=== PATIENT | male | born 1985 | race Caucasian/White ===

== ENCOUNTER → 2019-08-25 | Day surgery (SDC) | payer BC ==
[~2019-08-25] MED LIST: ACETAMINOPHEN 1000 MG/100 ML IV ONE; ADDERALL 30 MG30 MG PO; ADVIL200 MG PO; CEFAZOLIN SOD 1 GM/NS 50ML 100 ML IV ONE; DESFLURANE 240 ML BTL INH ONE; DEXAMETHASONE SOD PHOS INJ 4 MG/ML VIAL ONE; EPINEPHRINE 1 MG/ML 30ML VIAL ONE; FENTANYL CITRATE/PF 100MCG/2 ML INJ ONE; GLYCOPYRROLATE INJ 0.2 MG/ML VIAL ONE; KETOROLAC TROMETHAMINE 30 MG/ML VIAL ONE; LIDOCAINE HCL 2% LOCAL INJ 5 ML SDV VIAL INJ ONE; MIDAZOLAM HCL 2 MG/2 ML VIAL ONE; NEOSTIGMINE 1 MG/ML 10ML VIAL ONE; ONDANSETRON HCL INJ 2MG/ML 2ML 2 MG/ML VIAL ONE; PROPOFOL IV EMULSION 10 MG/ML 20 ML VIAL ONE; ROCURONIUM BROMIDE 10 MG/ML 5ML VIAL ONE; ROPIVACAINE 0.5% 5 MG/ML 30 ML SDV ONE; SUGAMMADEX SODIUM 200 MG/2 ML VIAL IV ONE; TYLENOL PO
--- OUTSIDE RECORDS SUMMARY | 2019-08-25 09:11 | XMS REPORT | Summary of Care ---
Author Author Lexie Carrillo M.A. Unknown Address [facility] Phone Unavailable Care Team Providers Care Manager Supply Chain Planning Name Role Phone EAMON PIERRE M.D. 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 Biceps tendinitis of right upper extremity (726.12, M75.21) Status: Active Medications Name Dates Details Medications not documented Allergies and Adverse Reactions Name Dates Details No Known Drug Allergies (Allergy) Status: Active Past Medical History Name Dates Details History of High blood pressure (401.9, I10) Status: Resolved Procedures Procedure Dates Details History of Shoulder Surgery Completed History of Oral Surgery Tooth Extraction Shannon Tooth Completed Immunization Name Dates Details Immunizations not documented Social History Name Dates Details - Status: Name Dates Details Never smoker Vital Signs Date Test Result Details No Known Vitals to report Results Date Description Value Details [id number] [U] XRAY SHOULDER MIN 2 VWS RIGHT [id number] XR SHOULDER MIN 2 VWS RIGHT Images acquired, not reported on this accession number. Plan of Care Name Dates Details Planned Observations Planned Goals not documented Planned Encounters Appointment; EAMON PIERRE M.D. On: 21-Apr-2019 7:00 Appointment; EAMON PIERRE M.D. On: 26-Apr-2019 10:15 Instructions Name Dates Details Instructions not documented Encounters Appointment; EAMON PIERRE M.D. Encounter Diagnosis: Problem not documented On: 05-Apr-2019 13:00 Appointment; EAMON PIERRE M.D. Encounter Diagnosis: Problem not documented On: 21-Apr-2019 7:00
[2019-08-25 16:35] VITALS: BP 117/90
--- NOTE | 2019-09-03 17:57 | Operative Report ---
DATE OF PROCEDURE: 08/25/2019 SURGEON: Mahendra Ordonez MD PREOPERATIVE DIAGNOSIS: Right shoulder labral tear. 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 OPERATION PROCEDURE PERFORMED: The patient underwent right shoulder examination under anesthesia, right shoulder arthroscopy, right shoulder debridement of synovitis, right shoulder arthroscopic debridement of labral tear, chondroplasty of the glenoid and humeral head, right shoulder arthroscopic biceps tenodesis and a right shoulder arthroscopic subacromial decompression without acromioplasty. DEAN OF STUDENTS: CHRIS Garcia ANESTHESIA: General endotracheal intubation anesthesia. IV FLUIDS: Per the anesthesia record. BRIEF DESCRIPTION OF THE PATIENT'S OPERATIVE PROCEDURE: Mr. Torres was taken to the operating room, placed in supine position on the operating table. Following induction of general anesthesia as well as endotracheal intubation, the patient's right upper extremity was examined under anesthesia. He was found to have full passive range of motion of the shoulder joint without evidence of instability. The patient's upper extremity was prepped and draped in standard surgical fashion. Standard posterolateral and anterior portal was created without difficulty. The scope was placed in the shoulder joint atraumatically. Examination of the glenohumeral articulation demonstrated extensive chondromalacia of the glenoid and humeral head surfaces. There was evidence of grade 4 chondromalacia in the anterior, inferior, and posterior aspects of the glenoid. There was also synovitis within the shoulder joint. A shaver was placed in the shoulder joint and the synovitis was debrided. Chondroplasties of the glenoid humeral head were performed at this time. Examination of the rotator cuff tissue demonstrated an intact rotator cuff. Examination of the labrum demonstrated extensive tearing of the posterior and posterior superior labrum extending into the base and attachment of the long head of the biceps tendon. The shaver was transferred to the anterior portal and a probe was passed through the posterior portal to more thoroughly evaluate the posterior labrum. The labrum was found to be extensively torn extending from the biceps anchor to the posterior inferior aspect of the glenoid. The posterior inferior glenohumeral ligament was intact. The shaver was then placed in the shoulder joint and the labrum was debrided. Given the extensive tearing of the labrum and its extension of the biceps tendon, the decision was made to provide the patient an intra-articular biceps tenodesis. The rotator interval was debrided. Sutures were shuttled through the rotator interval capturing the long head of the biceps tendon. The biceps tendon was then released from its attachment to the glenoid. The biceps stump was then debrided as well as the superior aspect of the labrum. The shoulder was then deflated with sterile normal saline. The scope was transferred to the subacromial space and a lateral portal was created with an outside-in technique. There was significant bursal inflammation throughout the subacromial space. A bursectomy was performed at this time. The sutures were found anteriorly in the rotator interval and tied firmly over the rotator interval. The shoulder was placed through range of motion. There was no evidence of impingement. Examination of the bursal surface of the rotator cuff demonstrated no evidence of tears. The shoulder was deflated with normal saline. All port sites were closed and the patient was provided sterile dressings for his wounds. He was provided a shoulder immobilizer, awakened, taken to postanesthesia care in stable condition. MD JENNIFER Muñoz/RAMIRO /[id number]
== END | disposition home or self-care (01) ==
LOC: OR 09:08
PROVIDERS: ATTEND Specialist
DX: S43.431A Superior glenoid labrum lesion of right shoulder, initial encounter (principal); M94.211 Chondromalacia, right shoulder; G47.33 Obstructive sleep apnea (adult) (pediatric); F90.9 Attention-deficit hyperactivity disorder, unspecified type; W16.42XA Fall into unspecified water causing other injury, initial encounter; W50.0XXA Accidental hit or strike by another person, initial encounter; Y92.89 Other specified places as the place of occurrence of the external cause; Z68.34 Body mass index [BMI] 34.0-34.9, adult; Z87.891 Personal history of nicotine dependence
CPT/HCPCS: 29828; J0131; J0690; J1100; J1885; J2001; J2250; J2405; J2704; J2710; J2795; J3010